=== PATIENT | male | born 1980 | race Hispanic/Latino ===

== ENCOUNTER 2018-09-13 19:20 | Emergency (ER) | payer OTHER | END 2018-09-13 19:43 | disposition home or self-care (01) | LOC: EDH 19:20 | DX: S40.861A Insect bite (nonvenomous) of right upper arm, initial encounter (principal); L03.113 Cellulitis of right upper limb; Z72.0 Tobacco use; W57.XXXA Bitten or stung by nonvenomous insect and other nonvenomous arthropods, initial encounter; Y93.89 Activity, other specified; Y92.89 Other specified places as the place of occurrence of the external cause; Y99.8 Other external cause status ==